=== PATIENT | female | born 1985 | race Caucasian/White ===

== ENCOUNTER 2019-04-05 17:31 | Inpatient (IN) | payer OTHER ==
[2019-04-05 17:49] VITALS: BMI 34.4
[2019-04-05 18:29] LABS: BASO # 0.1 K/uL (0.0-0.2); BASO % 1.2 % (0.0-2.0); EOS % 0.6 % (0.0-4.0); HEMOGLOBIN 12.4 g/dL (11.0-16.0); LYMPH # 2.2 K/uL (1.0-4.3); LYMPH % 37.3 % (20.0-40.0); MEAN CELL VOLUME 85.4 fL (81.0-99.0); MEAN CORPUSCULAR HEMOGLOBIN 28.2 pg (27.0-31.0); MEAN PLATELET VOLUME 7.5 fL (7.2-11.7); MONO # 0.4 K/uL (0.0-0.8); MONO % 6.9 % (0.0-10.0); NEUT # 3.2 K/uL (1.8-7.0); RBC 4.39 Mil/uL (3.80-5.20); WHITE BLOOD COUNT 5.8 K/uL (4.8-10.8)
[2019-04-05 18:41] LABS: ALB/GLOB RATIO 1.4 (1.0-2.1); ALBUMIN 3.9 g/dL (3.5-5.0); ALT/SGPT 16 U/L (9-52); AST/SGOT 20 U/L (14-36); BLOOD UREA NITROGEN 8 mg/dL (7-17); CALCIUM 8.6 mg/dl (8.6-10.4); GFR NON-AFRICAN AMERICAN > 60
[2019-04-05 18:42] LABS: BARBITURATES, UR NEGATIVE (NEGATIVE); BENZODIAZEPINES, UR NEGATIVE (NEGATIVE); OPIATES, UR NEGATIVE (NEGATIVE); PHENCYCLIDINE, UR NEGATIVE (NEGATIVE)
[2019-04-05 18:47] LABS: SQUAMOUS EPITHIAL 3 /hpf (0-5); URINE BACTERIA RARE (<OCC); URINE BILIRUBIN NEGATIVE (NEGATIVE); URINE BLOOD 1+ (NEGATIVE); URINE CLARITY Hazy (Clear); URINE COLOR Yellow (YELLOW); URINE GLUCOSE (UA) NORMAL (Normal); URINE LEUKOCYTE ESTERASE NEG Leu/uL (Negative); URINE PROTEIN NEGATIVE (NEGATIVE); URINE UROBILINOGEN NORMAL mg/dL (0.2-1.0)
--- NOTE | 2019-04-05 19:10 | C.PDOC ---
History Of Present Illness 33 y.o. female with a hx of ETOH abuse presents for evaluation of depression with suicidal ideations. Pt reports cutting her wrists in weeks past, now healed. Admits to drinking today. Denies HI and any other associated symptoms. <Damian Beltran - Last Filed: 04/05/19 19:07> History Per: Patient History/Exam Limitations: no limitations Onset/Duration Of Symptoms: Days Current Symptoms Are (Timing): Still Present Suicide/Self Injury Attempted (Context): Cut Wrists Associated Symptoms: Depression, Suicidal Thoughts Recent travel outside of the [place]: No <Damian Beltran - Last Filed: 04/05/19 19:07> <Ken James - Last Filed: 04/05/19 20:57> Time Seen by Provider: 04/05/19 17:44 Chief Complaint (Nursing): Psychiatric Evaluation Past Medical History Vital Signs: Last Vital Signs Temp 98.4 F 04/05/19 17:45 Pulse 86 04/05/19 17:45 Resp 18 04/05/19 17:45 BP 106/71 04/05/19 17:45 Pulse Ox 100 04/05/19 17:45 Primary Care Provider: Non [facility] Provider, - Medical History PMH: Depression - Social History Hx Alcohol Use: Yes Hx Substance Use: No - Immunization History Hx Tetanus Toxoid Vaccination: No Hx Influenza Vaccination: No Hx Pneumococcal Vaccination: No <Damian Betlran - Last Filed: 04/05/19 19:07> Vital Signs: Last Vital Signs Temp 98.4 F 04/05/19 17:45 Pulse 86 04/05/19 17:45 Resp 18 04/05/19 17:45 BP 106/71 04/05/19 17:45 Pulse Ox 100 04/05/19 19:14 Family History: States: No Known Family Hx <Ken James - Last Filed: 04/05/19 20:57> Review Of Systems Except As Marked, All Systems Reviewed And Found Negative. Constitutional: Negative for: Fever, Chills Skin: Positive for: Other (wrist cutting. ) Psych: Positive for: Depression, Suicidal ideation <Damian Beltran - Last Filed: 04/05/19 19:07> Physical Exam - Physical Exam Appears: Non-toxic, No Acute Distress, Other (sleeping.) Skin: Warm, Dry, Other (old healed abrassion to LT wrist.) Head: Atraumatic, Normacephalic Eye(s): bilateral: Normal Inspection Oral Mucosa: Moist Neck: Normal ROM, Supple Chest: Symmetrical, No Deformity Cardiovascular: Rhythm Regular, No Murmur Respiratory: Normal Breath Sounds, No Rales, No Rhonchi, No Wheezing Gastrointestinal/Abdominal: Normal Exam, Soft, No Tenderness Extremity: Bilateral: Atraumatic, Normal Color And Temperature, Normal ROM Neurological/Psych: Oriented x3, Normal Speech, Normal Cognition <Damian Beltran - Last Filed: 04/05/19 19:07> ED Course And Treatment - Laboratory Results Result Diagrams: 04/05/19 18:20 04/05/19 18:20 Lab Results: Total Bilirubin 0.2 mg/dL (0.2-1.3) 04/05/19 18:20 AST 20 U/L (14-36) 04/05/19 18:20 ALT 16 U/L (9-52) 04/05/19 18:20 Alkaline Phosphatase 66 U/L (38-126) 04/05/19 18:20 Total Protein 6.6 g/dL (6.3-8.3) 04/05/19 18:20 Albumin 3.9 g/dL (3.5-5.0) 04/05/19 18:20 Globulin 2.7 gm/dL (2.2-3.9) 04/05/19 18:20 Albumin/Globulin Ratio 1.4 (1.0-2.1) 04/05/19 18:20 Urine Color Yellow (YELLOW) 04/05/19 18:20 Urine Clarity Hazy (Clear) 04/05/19 18:20 Urine pH 5.0 (5.0-8.0) 04/05/19 18:20 Ur Specific [place] 1.018 (1.003-1.030) 04/05/19 18:20 Urine Protein Negative mg/dL (NEGATIVE) 04/05/19 18:20 Urine Glucose (UA) Normal mg/dL (Normal) 04/05/19 18:20 Urine Ketones Negative mg/dL (NEGATIVE) 04/05/19 18:20 Urine Blood 1+ (NEGATIVE) H 04/05/19 18:20 Urine Nitrate Positive (NEGATIVE) H 04/05/19 18:20 Urine Bilirubin Negative (NEGATIVE) 04/05/19 18:20 Urine Urobilinogen Normal mg/dL (0.2-1.0) 04/05/19 18:20 Ur Leukocyte Esterase Neg Chuck/uL (Negative) 04/05/19 18:20 Urine WBC (Auto) 8 /hpf (0-5) H 04/05/19 18:20 Urine RBC (Auto) 1 /hpf (0-3) 04/05/19 18:20 Ur Squamous Epith Cells 3 /hpf (0-5) 04/05/19 18:20 Urine Bacteria Rare (<OCC) 04/05/19 18:20 O2 Sat by Pulse Oximetry: 100 (RA) Pulse Ox Interpretation: Normal <Damian Beltran - Last Filed: 04/05/19 19:07> - Laboratory Results Result Diagrams: 04/05/19 18:20 04/05/19 18:20 Lab Results: Total Bilirubin 0.2 mg/dL (0.2-1.3) 04/05/19 18:20 AST 20 U/L (14-36) 04/05/19 18:20 ALT 16 U/L (9-52) 04/05/19 18:20 Alkaline Phosphatase 66 U/L (38-126) 04/05/19 18:20 Total Protein 6.6 g/dL (6.3-8.3) 04/05/19 18:20 Albumin 3.9 g/dL (3.5-5.0) 04/05/19 18:20 Globulin 2.7 gm/dL (2.2-3.9) 04/05/19 18:20 Albumin/Globulin Ratio 1.4 (1.0-2.1) 04/05/19 18:20 Urine Color Yellow (YELLOW) 04/05/19 18:20 Urine Clarity Hazy (Clear) 04/05/19 18:20 Urine pH 5.0 (5.0-8.0) 04/05/19 18:20 Ur Specific [place] 1.018 (1.003-1.030) 04/05/19 18:20 Urine Protein Negative mg/dL (NEGATIVE) 04/05/19 18:20 Urine Glucose (UA) Normal mg/dL (Normal) 04/05/19 18:20 Urine Ketones Negative mg/dL (NEGATIVE) 04/05/19 18:20 Urine Blood 1+ (NEGATIVE) H 04/05/19 18:20 Urine Nitrate Positive (NEGATIVE) H 04/05/19 18:20 Urine Bilirubin Negative (NEGATIVE) 04/05/19 18:20 Urine Urobilinogen Normal mg/dL (0.2-1.0) 04/05/19 18:20 Ur Leukocyte Esterase Neg Chuck/uL (Negative) 04/05/19 18:20 Urine WBC (Auto) 8 /hpf (0-5) H 04/05/19 18:20 Urine RBC (Auto) 1 /hpf (0-3) 04/05/19 18:20 Ur Squamous Epith Cells 3 /hpf (0-5) 04/05/19 18:20 Urine Bacteria Rare (<OCC) 04/05/19 18:20 Urine HCG, Qual Negative (NEGATIVE) 04/05/19 19:03 Urine HCG, Qual Negative (NEGATIVE) 04/05/19 19:03 Progress Note: Patient admittd to [facility] under . Diagnosis of major depressive disordere severe and alcohol dependence. <Ken James - Last Filed: 04/05/19 20:57> Medical Decision Making Medical Decision Making: Initial plan: -Macrobid -Blood sent. -HCG Urine -Urinalysis. <Damian Beltran - Last Filed: 04/05/19 19:07> Disposition <Damian Beltran - Last Filed: 04/05/19 19:07> Discussed With DrChristiana: Kary Maciel Comment: accepted the pt [facility] is service and took over the care at 8:50 PM Doctor Will See Patient In The: Hospital Counseled Patient/Family Regarding: Studies Performed, Diagnosis - Disposition Disposition Time: 19:00 - POA Present On Arrival: None <Ken James - Last Filed: 04/05/19 20:57> - Disposition Disposition: HOSPITALIZED Condition: FAIR Forms: [facility] (Khmer) - Clinical Impression Clinical Impression: Major depression, Alcohol use disorder, severe, dependence - Scribe Statement The provider has reviewed the documentation as recorded by the Scribe (Snehal Loredo) Provider Attestation: All medical record entries made by the Scribe were at my direction and personally dictated by me. I have reviewed the chart and agree that the record accurately reflects my personal performance of the history, physical exam, medical decision making, and the department course for this patient. I have also personally directed, reviewed, and agree with the discharge instructions and disposition. <Damian Beltran - Last Filed: 04/05/19 19:07> Decision To Admit <Damian Beltran - Last Filed: 04/05/19 19:07> - Pt Status Changed To: Hospital Disposition Of: Inpatient - Admit Certification Admit to Inpatient:: After my assessment, the patient will require hospita lization for at least two midnights. This is because of the severity of symptoms shown, intensity of services needed, and/or the medical risk in this patient being treated as an outpatient. - InPatient: Physician Admission Certification: I certify that this patient requires 2 or more midnights of care for the following reason:: After my assessment, the patie nt will require hospitalization for at least two midnights. This is because of the severity of symptoms shown, intensity of services needed, and/or the medical risk in this patient being treated as an outpatient. - . Bed Request Type: Psychiatry Admitting Physician: Kary Maciel <Ken James - Last Filed: 04/05/19 20:57> - . Patient Diagnosis: Major depression, Alcohol use disorder, severe, dependence
--- NOTE | 2019-04-05 22:49 | PCM.BM ---
<Pushpa Alberts - Last Filed: 04/05/19 22:46> Treatment Plan Problems - Problems identified on initial assessmt Denial Date Initiated: 04/05/19 Time Initiated: 21:50 Assessment reference: NA Status: Active Anxiety Date Initiated: 04/05/19 Time Initiated: 21:50 Assessment reference: NA Status: Active Suicidal Ideation Date Initiated: 04/05/19 Time Initiated: 21:50 Assessment reference: NA Status: Active Ineffective Coping Date Initiated: 04/05/19 Time Initiated: 21:50 Assessment reference: NA Status: Active Treatment assets and liabiliti Patient Assests: ADL independent, physically healthy Patient Liabilities: poor support system, relationship conflicts, substance abuse (Alcohol) - Milieu Protocol Maintain good personal hygiene: daily Encourage regular showers, daily Remind patient to perform daily oral care, every shift Assist patient to perform ADL's Conduct patient checks and document Observation sheet: Q15 minutes Maintain personal safety: every shift Educate patient to report safety concerns to staff, every shift Monitor environment for contraband/sharps Medication safety: Monitor for expected outcome, potential side effects: every shift, Assess barriers to learning: every shift, Assess readiness for medication education: every shift <Kamila Tobar - Last Filed: 04/09/19 14:28> Family Contact Family involvement: Patient does not wish Family/SO involvement Family contact: Patient declines to allow family contact at present - Goals for Treatment Patient goals for treatment: "I want to go to an outpatient program." Discharge/Continuing Care - Education Needs Education Needs: Patient Medication, Patient Diagnosis/Disease Process, Patient Coping Skills, Patient Placement options, Patient Community resources - Discharge Discharge Criteria: Free of Suicidal thoughts, Normal sleep pattern, Ability to care for self, No longer exhibiting s/s of withdrawal, Reduction of target symptoms Discharge to:: Home, With Family - Treatment Team Participation Discussed with Family/SO: No Was Patient/Family/SO present at Treatment Team Meeting: Yes
[2019-04-06 06:38] VITALS: O2SAT 98
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
[2019-04-07] MEDS: Multiple Vitamins Tab PO SCH (09:32)
--- NOTE | 2019-04-07 12:36 | PCM.PYCHPN ---
Psychiatric Progress Note - Psychiatric Progress Note Patient seen today, length of contact: 16 Mins Patient Chief Complaint: "I feel a little better today" Problems Identified/Issues Discussed: The pt is seen, chart reviewed, case is discussed with staff. The pt is compliant with medications and reports no side-effects. Symptoms are improving but needs more time to stabilize and to avoid relapse. Pt attends groups and activities. Support given, psycho-education provided. After care discussed. Medication Change: Yes Medical Record Reviewed: Yes Mental Status Examination - Cognitive Function Orientation: Person, Place, Situation, Time Memory: Intact Attention: WNL Concentration: WNL - Mood Mood: Depressed, Anxious - Affect Affect: Broad, Depressed - Speech Speech: Appropriate - Formal Thought Process Formal Thought Process: No Impairment - Suicidal Ideation Suicidal Ideation: No - Homicidal Ideation Homicidal Ideation: No Goal/Treatment Plan - Goal/Treatment Plan Need for Continued Stay: Remain at risks for inpatient hospitalization, Severe depression anxiety Progress Toward Problem(s) and Goals/Treatment Plan: Continue medications Support and psychoeducation daily Attend groups and activities daily Individual therapy After care planning by NANCY and the team - Smoking Cessation Smoking Cessation Initiated: No Reason for not providing: Patient declined
[2019-04-08] MEDS: Multiple Vitamins Tab PO SCH (09:26)
[2019-04-09] MEDS: Multiple Vitamins Tab PO SCH (09:21)
--- NOTE | 2019-04-09 10:52 | PCM.PYCHPN ---
Psychiatric Progress Note - Psychiatric Progress Note Patient seen today, length of contact: 16 Mins Medication Change: Yes Medical Record Reviewed: Yes Mental Status Examination - Cognitive Function Orientation: Person, Place, Situation, Time Memory: Intact Attention: WNL Concentration: Poor Association: WNL Fund of Knowledge: Poor - Mood Mood: Depressed, Anxious - Affect Affect: Broad, Depressed - Speech Speech: Appropriate - Formal Thought Process Formal Thought Process: No Impairment - Suicidal Ideation Suicidal Ideation: No - Homicidal Ideation Homicidal Ideation: No Goal/Treatment Plan - Goal/Treatment Plan Need for Continued Stay: Remain at risks for inpatient hospitalization, Severe depression anxiety
[2019-04-10 06:37] VITALS: BP 108/65; PULSE 78; RESP 20; TEMP 98.7
--- NOTE | 2019-04-10 09:45 | PCM.PYCHPN ---
Psychiatric Progress Note - Psychiatric Progress Note Patient seen today, length of contact: 16 Mins Patient Chief Complaint: I am feeling better.' Medication Change: Yes Medical Record Reviewed: Yes Mental Status Examination - Cognitive Function Orientation: Person, Place, Situation, Time Memory: Intact Attention: WNL Concentration: Poor Association: WNL Fund of Knowledge: Poor - Mood Mood: Depressed, Anxious - Affect Affect: Broad, Depressed - Speech Speech: Appropriate - Formal Thought Process Formal Thought Process: No Impairment - Suicidal Ideation Suicidal Ideation: No - Homicidal Ideation Homicidal Ideation: No Goal/Treatment Plan - Goal/Treatment Plan Need for Continued Stay: Remain at risks for inpatient hospitalization, Severe depression anxiety
[2019-04-10] MEDS: Multiple Vitamins Tab PO SCH (09:51)
--- NOTE | 2019-04-10 09:52 | PCM.PYCHDC ---
Mental Status Examination - Mental Status Examination Orientation: Person, Place, Situation, Time Memory: Intact Mood: Neutral Affect: Constricted Speech: Soft Attention: WNL Concentration: WNL Association: WNL Fund of Knowledge: WNL Formal Thought Process: No Impairment Description of patient's judgement and insight: good, fair Psychotic Thoughts and Behaviors: denies any AVH Suicidal Ideation: No Current Homicidal Ideation?: No Discharge Summary - Discharge Note Consultations:: List each consultation separately and include: 1. Reason for request. 2. Findings. 3. Follow-up Summary of Hospital Course include:: 1. Description of specific treatment plan utilized for patients during their course of treatmen. 2. Summarize the time- course for resolution of acute symptoms and/or regressed behaviors. 3. Describe issues identified and worked on during hospitalization. 4. Describe medication utilized. 5. Describe medical problems identified and treated. 6. Reassessment of suicide risk - Final Diagnosis (DSM 5) Condition upon Discharge: FAIR Disposition: HOME/ ROUTINE Prescriptions/Medication Reconciliation: Escitalopram [Lexapro] 10 mg PO DAILY #30 tab Gabapentin [Neurontin] 100 mg PO BID #60 cap traZODone [Desyrel] 50 mg PO HS #30 tab
== END 2019-04-10 11:57 | disposition home or self-care (01) | DRG 885 ==
LOC: C.ER 17:31 → C.5E 20:54
PROVIDERS: ADMIT Psychiatry & Neurology Psychiatry; ATTEND Psychiatry & Neurology Psychiatry
PROC: GZ56ZZZ Individual Psychotherapy, Supportive (ICD-10-PCS; principal; 2019-04-05)
DX: F33.2 Major depressive disorder, recurrent severe without psychotic features (principal); F10.230 Alcohol dependence with withdrawal, uncomplicated; Y90.6 Blood alcohol level of 120-199 mg/100 ml; Z98.84 Bariatric surgery status; Z91.5 Personal history of self-harm